=== PATIENT | male | born 1985 | race Caucasian/White ===

== ENCOUNTER 2021-04-24 12:45 | Emergency (ER) | payer OTHER, SELFPAY ==
[2021-04-24 13:01] VITALS: BP 184/93; PULSE 107; RESP 16; TEMP 36.8; O2SAT 99
[2021-04-24 13:07] VITALS: BP 144/104; PULSE 90; RESP 18; O2SAT 97
--- NOTE | 2021-04-24 13:34 | XR_ITS ---
WS: [id number] XR lumbar spine 2-3V* [id number] REASON FOR EXAM: back pain FINDINGS: The lumbar spine is unchanged compared to 01/04/2019. No significant compression deformity or other focal lumbar vertebral body abnormality. Mild narrowing of the intervertebral disc spaces L1-L5. Moderate narrowing of the L5-S1 disc space. XR/XR lumbar spine 2-3V* [id number] IMPRESSION: Mild/moderate changes of degenerative spondylosis with no significant interval change. No acute abnormality.
--- NOTE | 2021-04-24 13:35 | ED_ITS ---
HPI - Back Pain/Injury General: Chief Complaint: Back Pain/Injury Stated Complaint: BACK PAIN AND CANT FEEL HIS KNEES Time Seen by Provider: 04/24/21 13:09 History of Present Illness: HPI Narrative: 35-year-old male presents emergency room complaining of low back pain radiating into the buttock and the upper thighs bilaterally. This been present for several months he has not seen anyone for it he has been taking acetaminophen and ibuprofen for it at home. He has been taking far more than the usual recommended doses from what he described he is probably getting 6 to 8 g of Tylenol per day. He says he has been doing this for several weeks. He is also taking large amounts of ibuprofen is not had any GI side effects. Noted so far. He states he did not have any trauma that precipitated this he is intermittently had significant back pain in the past no previous surgeries or imaging. No difficulty with bowel or bladder no urinary retention or fecal incontinence he said the worst of the pain is when he stands up and better if he sits or if he lies down. MD elicited complaint: back pain and back injury Pertinent past history: prior back pain Onset (ago): month(s) Timing: intermittent Severity: severe Similar Symptoms Previously: Yes Quality: sharp Location: lumbar spine Radiation: buttocks, left upper leg and right upper leg Exacerbating factors: walking Relieving factors: supine and sitting upright Associated symptoms: Deny abdominal pain, arthralgias, chills, change in bowel habits, difficulty walking, dysuria, fatigue, fecal incontinence, fever(s), hematuria, myalgias, nausea, numbness, syncope, tingling/numbness/burning, urinary frequency, urinary urgency, vomiting or weakness Treatments prior to arrival: NSAIDS and acetaminophen Work related injury: No Review of Systems 2 Const: Denies: fever(s), chills or fatigue ENMT: Denies: throat pain, ear or mastoid pain, nasal discharge or nasal congestion Card: Denies: syncope Resp: Denies: dyspnea, productive cough or non-productive cough GI: Denies: abdominal pain, nausea, vomiting, fecal incontinence or change in bowel habits : Denies: dysuria, urinary urgency or hematuria Skin/Breast: Denies: rash or pruritus Neuro: Denies: difficulty walking Physical Exam Const: COMMON NORMALS: no acute distress GENERAL APPEARANCE: cooperative and comfortable ORIENTATION/CONSCIOUSNESS: Yes awake, Yes oriented to person, Yes oriented to place and Yes oriented to time HENMT: COMMON NORMALS: normocephalic, atraumatic and hearing grossly normal bilaterally HEAD & SCALP: normocephalic and atraumatic Neck/C-Spine: COMMON NORMALS: no JVD Resp: COMMON NORMALS: normal respiratory effort, No retractions, No use of accessory muscles and clear to auscultation bilaterally AUSCULTATION: clear to auscultation bilaterally Cardio: COMMON NORMALS: no JVD, regular rate, regular rhythm and No murmurs present (Cardio) RATE: regular rate RHYTHM: regular rhythm GI: COMMON NORMALS: Soft to palpation and No hepatosplenomegaly present AUSCULTATION: Yes normoactive bowel sounds PALPATION: Yes Soft to palpation, No Tenderness to palpation present (GI), No Guarding due to palpation present (GI) and Yes No hepatosplenomegaly present Extremity: COMMON NORMALS: normal to inspection, capillary refill normal, no clubbing, cyanosis or edema, no calf tenderness and no pedal edema Neuro: SENSORIUM/ORIENTATION: Yes oriented to person, Yes oriented to place and Yes oriented to time OTHER: Dorsal and plantar flexion strength 5/5. Sensation lower extremities normal straight leg raising negative Skin: COMMON NORMALS: no rashes or lesions noted GENERAL SKIN EXAM: no rashes or lesions noted Course Vital Signs: Vital signs: Vital Signs Temperature 98.2 F 04/24/21 13:01 Pulse Rate 75 04/24/21 15:06 Respiratory Rate 17 04/24/21 14:35 Blood Pressure 141/94 04/24/21 15:06 Pulse Oximetry 97 04/24/21 15:06 MDM - Back Pain/Injury MDM Narrative: Medical decision making narrative: No sign of significant neural impingement at this time. Straight leg raising negative no suggestion of cauda equina at this point. Patient is actually able to move on the exam bed pretty freely without evidence of significant back pain. Neurologically otherwise intact will discharge home on prednisone diclofenac and tizanidine patient has actually had this for quite some time recommend follow-up with primary care as any worsening symptoms can return reevaluate with PCP for potential need for advanced imaging. Lab Data: Labs: Lab Results 04/24/21 04/24/21 04/24/21 13:58 13:58 13:58 WBC 11.0 10^3/uL H 10 ^3/uL (4.0-10.0) RBC 5.10 10^6/uL 10^6 /uL (4.1-5.3) Hgb 16.3 g/dL g/dL (11.7-16.6) Hct 47.7 % % (42.0-52.0) MCV 93.5 fl fl (80-94) MCH 32.0 pg pg (28.0-34.0) MCHC 34.2 g/dL g/dL (30.0-36.0) RDW 13.0 % % (12.1-15.1) Plt Count 283 10^3/cmm 10^3 /cmm (130-400) MPV 9.5 fL fL (7.4-10.4) Neut % (Auto) 70.3 % % Lymph % (Auto) 20.5 % % [place] % (Auto) 5.8 % % Eos % (Auto) 2.8 % % Baso % (Auto) 0.4 % % Neut # (Auto) 7.73 10^3/uL H 10 ^3/uL (1.8-7.7) Lymph # (Auto) 2.3 10^3/uL 10^3/ uL (0.8-4.8) [place] # (Auto) 0.6 10^3/uL 10^3/ uL (0.2-0.9) Eos # (Auto) 0.3 10^3/uL 10^3/ uL (0.0-0.8) Baso # (Auto) 0.0 10^3/uL 10^3/ uL (0.0-0.1) Nucleated RBC % (a uto) 0 % % Nucleated RBCs # 0.0 /100WBC /100W BC PT 12.00 SECONDS L S ECONDS (12.1-14.9) INR 0.86 (0.8-1.2) Sodium 137 mmol/L mmol/L (136-145) Potassium 3.9 mmol/L mmol/L (3.5-5.1) Chloride 103 mmol/L mmol/L (98-107) Carbon Dioxide 25 mmol/L mmol/L (22-29) Anion Gap 12.9 (5-19) BUN 14 mg/dL mg/dL (6-20) Creatinine 0.8 mg/dL mg/dL (0.7-1.2) GFR Calculation 110.0 mL/min mL/m in (90-130) Glucose 106 mg/dL mg/dL (65-115) Calculated Osmolal ity 285 mOsm/kg mOsm/ kg (285-295) Calcium 9.6 mg/dL mg/dL (8.5-10.5) Total Bilirubin 0.2 mg/dL mg/dL (0.15-1.2) AST 37 U/L U/L (0-40) ALT 100 U/L H U/L (0-41) Alkaline Phosphata se 88 IU/L IU/L (40-130) Total Protein 7.7 g/dL g/dL (6.6-8.7) Albumin 4.2 g/dL g/dL (3.5-5.2) Globulin 3.5 g/dL g/dL (1.3-4.6) Acetaminophen 5.7 ug/mL L ug/mL (10-30) Discharge Plan Discharge Patient Disposition: Home Clinical Impression: Lumbar radiculopathy Condition: Stable Prescriptions: New diclofenac sodium 75 mg tablet,delayed release (DR/EC) 75 mg PO Q12H PRN (Reason: pain) Qty: 20 RF: 0 prednisone 20 mg tablet 20 mg PO BID Qty: 15 RF: 0 tizanidine 4 mg capsule 4 mg PO Q6H PRN (Reason: muscle spasticity) Qty: 20 RF: 0 No Action Tylenol 325 mg Tablet 1,300 mg PO .EVERY 2-3 HOURS PRN (Reason: Pain) RF: 0 ibuprofen 200 mg Tablet 800 mg PO .EVERY 2-3 HOURS PRN (Reason: Pain) RF: 0 Discharge Orders: Discharge ED (Routine); Ordered 04/24/21 Ordered By: Lyle Dominguez Discharge Diet: Usual diet Discharge Activity: Limit activity as instructed Patient Instructions: Opioid Safety Activity Restrictions/Additional Instructions: Follow-up with your primary care doctor for evaluation for advanced imaging if not improving. Coding Level of Care Code ED Health Promotion Coordinator for [place] Fwd Exam Comprehensive
[2021-04-24] MEDS: ketorolac 30 mg/mL INJ IVP (14:07)
[2021-04-24] MEDS: dexamethasone 10 mg/mL INJ IVP (14:07)
[2021-04-24] MEDS: orphenadrine 30 mg/mL Inj 2 mL 60 MG IVP (14:08)
[2021-04-24 14:15] LABS: Basophils % 0.4 %; Eosinophils # 0.3 10^3/uL (0.0-0.8); Eosinophils % 2.8 %; Hematocrit 47.7 % (42.0-52.0); Hemoglobin 16.3 g/dL (11.7-16.6); Lymphocytes # 2.3 10^3/uL (0.8-4.8); Lymphocytes % 20.5 %; Mean Corpuscular HGB Conc 34.2 g/dL (30.0-36.0); Mean Corpuscular Volume 93.5 fl (80-94); Mean Platelet Volume 9.5 fL (7.4-10.4); Monocytes # 0.6 10^3/uL (0.2-0.9); Monocytes % 5.8 %; Neutrophils # 7.73 10^3/uL (1.8-7.7); Neutrophils % 70.3 %; Nucleated Red Blood Cells % 0 %; Platelet Count 283 10^3/cmm (130-400)
[2021-04-24 14:30] LABS: INR 0.86 (0.8-1.2)
[2021-04-24 14:35] VITALS: BP 153/100; PULSE 81; RESP 17; O2SAT 96
[2021-04-24 14:40] LABS: Acetaminophen 5.7 ug/mL (10-30); Alanine Aminotransferase 100 U/L (0-41); Albumin Level 4.2 g/dL (3.5-5.2); Alkaline Phosphatase 88 IU/L (40-130); Anion Gap 12.9 (5-19); Aspartate Amino Transferase 37 U/L (0-40); Blood Urea Nitrogen 14 mg/dL (6-20); Calcium 9.6 mg/dL (8.5-10.5); Carbon Dioxide 25 mmol/L (22-29); Chloride 103 mmol/L (98-107); Globulin 3.5 g/dL (1.3-4.6); Glucose 106 mg/dL (65-115); Osmolality Calculated 285 mOsm/kg (285-295); Potassium 3.9 mmol/L (3.5-5.1); Sodium 137 mmol/L (136-145); Total Bilirubin 0.2 mg/dL (0.15-1.2); Total Protein 7.7 g/dL (6.6-8.7)
[2021-04-24 15:06] VITALS: BP 141/94; PULSE 75; O2SAT 97
== END 2021-04-24 15:06 | disposition home or self-care (01) ==
PROVIDERS: Emergency Provider Family Medicine
DX: M54.16 Radiculopathy, lumbar region (principal)
CPT/HCPCS: 72100; 80053; 80307; 85025; 85610; 96374; 96375; 99284; J1100; J1885; J2360

== ENCOUNTER 2022-07-04 17:01 | Emergency (ER) | payer OTHER, SELFPAY ==
[2022-07-04 17:07] VITALS: BP 156/95; PULSE 103; RESP 16; TEMP 36.4; O2SAT 99; BMI 37.0
--- NOTE | 2022-07-04 17:20 | W.ED.MALEGU ---
Documented by User: Lyle Dominguez DO 07/06/22 06:19 HPI - Male Genitourinary General: Chief complaint: Urogenital-Male Stated complaint: blood in urine Time Seen by Provider: 07/04/22 17:19 Source: patient Mode of arrival: ambulatory History of Present Illness: 36-year-old male presents emergency room complaining of hematuria. Has some dysuria. This began just prior to arrival. Not previously had a history of renal stones or cystitis. He is not had any penile drainage. He has chronic back pain but no new flank pain. Denies fever sweats or chills. Onset (ago): minute(s) Duration: constant Severity: mild Quality: burning Relieving factors: none Exacerbating factors: none Associated symptoms: Reports dysuria and hematuria; Deny discharge, fevers/chills, nausea, rash, swelling, urinary incontinence, urinary retention, mass or vomiting Review of Systems Const: Denies: fever(s), chills, body aches, change in appetite, fatigue or malaise ENMT: Denies: throat pain, ear or mastoid pain, nasal discharge or nasal congestion Card: Denies: chest pain, palpitations, irregular heart rhythm, edema, dyspnea on exertion or orthopnea Resp: Denies: dyspnea, productive cough or non-productive cough GI: Denies: abdominal pain, nausea, vomiting, diarrhea or constipation : Reports: dysuria and hematuria; Denies: flank pain, urinary frequency, urinary urgency or urinary incontinence Musc: Denies: neck pain or back pain Skin/Breast: Denies: rash or pruritus [facility] ED PFSH: Medical History (Updated 07/04/22 @ 19:00 by Weston Orozco DO) Diabetes mellitus Obesity Social History (Updated 07/04/22 @ 17:28 by Lyle Dominguez DO) Smoking and tobacco status: never smoked Physical Exam Const: COMMON NORMALS: no acute distress GENERAL APPEARANCE: cooperative and comfortable ORIENTATION/CONSCIOUSNESS: Yes awake, Yes oriented to person, Yes oriented to place and Yes oriented to time HENMT: COMMON NORMALS: normocephalic, atraumatic and hearing grossly normal bilaterally HEAD & SCALP: normocephalic and atraumatic Resp: COMMON NORMALS: normal respiratory effort, No retractions, No use of accessory muscles and clear to auscultation bilaterally AUSCULTATION: clear to auscultation bilaterally Cardio: COMMON NORMALS: regular rate, regular rhythm and No murmurs present (Cardio) RATE: regular rate RHYTHM: regular rhythm GI: COMMON NORMALS: Soft to palpation and No hepatosplenomegaly present AUSCULTATION: Yes normoactive bowel sounds PALPATION: Yes Soft to palpation, No Tenderness to palpation present (GI), No Guarding due to palpation present (GI) and Yes No hepatosplenomegaly present : COMMON NORMALS: Yes no CVA tenderness BLADDER/KIDNEY EXAM: Yes no CVA tenderness Back/Pelvis: COMMON NORMALS: no CVA tenderness Extremity: COMMON NORMALS: normal to inspection, capillary refill normal, no clubbing, cyanosis or edema, no calf tenderness and no pedal edema Neuro: SENSORIUM/ORIENTATION: Yes oriented to person, Yes oriented to place and Yes oriented to time Skin: COMMON NORMALS: no rashes or lesions noted GENERAL SKIN EXAM: no rashes or lesions noted Course Vital Signs: Vital signs: Vital Signs Temperature 97.6 F 07/04/22 17:07 Pulse Rate 103 H 07/04/22 17:07 Respiratory Rate 16 07/04/22 17:07 Blood Pressure 156/95 07/04/22 17:07 Pulse Oximetry 99 07/04/22 17:[address] thod 07/04/22 17:07 [facility] - Male Medical Decision Making Care signed out to Dr. Orozco at change of shift. See final notes for diagnosis and disposition. 36-year-old male gross hematuria checked out to me at shift change by Dr. Rosa. This gentleman is in no pain currently. He does have hematuria on urinalysis. His renal function looks normal. His white blood cell count is 12.5. Hemoglobin is 16.5. His CT does not reveal a definite cause of gross hematuria. He was informed of this. This could have been a stone that passed earlier today causing hematuria but no cause is identified by CT. He was told he needs to follow-up next week to ensure his urine is clearing the blood. We will ask case management to make an appointment for him, as he does not have a PCP. Lab Data 07/04/22 17:30 12 17:30 Radiology Impressions Abdomen/Pelvis CT 07/04/22 17:42 IMPRESSION: 1. 2 mm nonobstructing right renal calculi demonstrated on coronal reformatted images. No left renal calculi identified. No renal cyst or mass noted. No hydronephrosis. Normal ureters. No obstructive uropathy. Tiny right renal calculi appear new when compared to CT abdomen of 01/04/2019. 2. The urinary bladder is unremarkable in appearance. 3. 1.8 cm right adrenal adenoma. This lesion has enlarged slightly when compared to 01/04/2019. 4. Mild diverticulosis of the sigmoid colon. No acute diverticulitis. COMMENTS: Consistent with the [employer]'s Incidental Findings Committee white paper (J Am Gwendolyn Radiol 2017): For any incidental adrenal lesion greater than or equal to 1 cm but less than or equal to 4 cm classified in this report as benign, likely benign, or containing fat (including classification as an adenoma or myelolipoma), no follow-up imaging is recommended per consensus recommendations based on imaging criteria. Further lab evaluation could be pursued if warranted based on clinical findings. Laboratory Results WBC 12.5 10^3/uL (4.0-10.0) H 07/04/22 17:30 RBC 5.22 10^6/uL (4.1-5.3) 07/04/22 17:30 Hgb 16.5 g/dL (11.7-16.6) 07/04/22 17:30 Hct 48.0 % (42.0-52.0) 07/04/22 17:30 MCV 92.0 fl (80-94) 07/04/22 17:30 MCH 31.6 pg (28.0-34.0) 07/04/22 17:30 MCHC 34.4 g/dL (30.0-36.0) 07/04/22 17:30 RDW 12.9 % (12.1-15.1) 07/04/22 17:30 Plt Count 282 10^3/cmm (130-400) 07/04/22 17:30 MPV 9.6 fL (7.4-10.4) 07/04/22 17:30 Neut % (Auto) 65.2 % 07/04/22 17:30 Lymph % (Auto) 22.6 % 07/04/22 17:30 [place] % (Auto) 8.0 % 07/04/22 17:30 Eos % (Auto) 3.3 % 07/04/22 17:30 Baso % (Auto) 0.6 % 07/04/22 17:30 Neut # (Auto) 8.12 10^3/uL (1.8-7.7) H 07/04/22 17:30 Lymph # (Auto) 2.8 10^3/uL (0.8-4.8) 07/04/22 17:30 [place] # (Auto) 1.0 10^3/uL (0.2-0.9) H 07/04/22 17:30 Eos # (Auto) 0.4 10^3/uL (0.0-0.8) 07/04/22 17: Baso # (Auto) 0.1 10^3/uL (0.0-0.1) 07/04/22 17:30 Nucleated RBC % (auto) 0 % 07/04/22 17: Nucleated RBCs # 0.0 /100WBC 07/04/22 17:30 Sodium 134 mmol/L (136-145) L 07/04/22 17:30 Potassium 3.7 mmol/L (3.5-5.1) 07/04/22 17:30 Chloride 98 mmol/L (98-107) 07/04/22 17:30 Carbon Dioxide 27 mmol/L (22-29) 07/04/22 17:30 Anion Gap 12.7 (5-19) 07/04/22 17:30 BUN 9 mg/dL (6-20) 07/04/22 17:30 Creatinine 0.7 mg/dL (0.7-1.2) 07/04/22 17:30 GFR Calculation 127.6 mL/min (90-130) 07/04/22 17:30 Glucose 117 mg/dL (65-115) H 07/04/22 17:30 Calculated Osmolality 278 mOsm/kg (285-295) L 07/04/22 17:30 Calcium 9.5 mg/dL (8.5-10.5) 07/04/22 17:30 Urine Color Yellow (Yellow) 07/04/22 17:15 Urine Appearance Hazy (CLEAR) A 07/04/22 17: Urine pH 5 (5-7) 07/04/22 17: Ur Specific [place] 1.020 (1.005-1.030) 07/04/22 17:15 Urine Protein Neg (Negative) 07/04/22 17:15 Urine Glucose (UA) Norm (Normal) 07/04/22 17:15 Urine Ketones Negative (Negative) 07/04/22 17:15 Urine Blood 3+ (Negative) H 07/04/22 17:15 Urine Nitrate Negative (Negative) 07/04/22 17:15 Urine Bilirubin Neg (Negative) 07/04/22 17:15 Urine Urobilinogen 1 mg/dL (Negative) H 07/04/22 17:15 Ur Leukocyte Esterase Negative (Negative) 07/04/22 17:15 Urine RBC 40-50 /hpf (0-2) H 07/04/22 17:15 Urine WBC 5-10 /hpf (0-5) H 07/04/22 17:15 Ur Squamous Epith Cells None /hpf (0-5) 07/04/22 17:15 Amorphous Sediment Not Reportable 07/04/22 17:15 Urine Bacteria Trace /hpf (NONE) 07/04/22 17:15 Urine Mucus 1+ /hpf 07/04/22 17:15 Discharge Plan Discharge Patient Disposition: Home Clinical Impression: Gross hematuria Condition: Stable Prescriptions: No Action Tylenol 325 mg Tablet 1,300 mg PO .EVERY 2-3 HOURS PRN (Reason: Pain) ibuprofen 200 mg Tablet 800 mg PO .EVERY 2-3 HOURS PRN (Reason: Pain) diclofenac sodium 75 mg tablet,delayed release (DR/EC) 75 mg PO Q12H PRN (Reason: pain) Qty: 20 0RF prednisone 20 mg tablet 20 mg PO BID Qty: 15 0RF Rx Instructions: 1 p.o. 3 times daily x3 days, 1 p.o. twice daily x2 days, 1 p.o. daily x2 days tizanidine 4 mg capsule 4 mg PO Q6H PRN (Reason: muscle spasticity) Qty: 20 0RF Rx Instructions: do not exceed 3 doses per 24 hrs Discharge Orders: Discharge ED (Routine); Ordered 07/04/22 Ordered By: Weston Orozco Patient Instructions: Hematuria (ED) Activity Restrictions/Additional Instructions: Return for increasing pain, fever, worsening bleeding in the urine or bleeding from other places. We have asked case management to make you an appointment for follow-up next week to ensure your urine is clearing up. It is important to ensure that the urine clears of blood, even microscopically. Coding Level of Care Code ED Interactive Producer for Chg Fwd Exam Comprehensive Documented by User: Weston Orozco DO 07/04/22 19:06 HPI - Male Genitourinary General: Chief complaint: Urogenital-Male Stated complaint: blood in urine Time Seen by Provider: 07/04/22 17:19 [facility] ED PFSH: Medical History (Updated 07/04/22 @ 19:00 by Weston Orozco DO) Diabetes mellitus Obesity Social History (Updated 07/04/22 @ 17:28 by Lyle Dominguez DO) Smoking and tobacco status: never smoked Course Vital Signs: Vital signs: Vital Signs Temperature 97.6 F 07/04/22 17:07 Pulse Rate 103 H 07/04/22 17:07 Respiratory Rate 16 07/04/22 17:07 Blood Pressure 156/95 07/04/22 17:07 Pulse Oximetry 99 07/04/22 17:07 Oxygen Delivery Me thod 07/04/22 17:07 MDM - Male Medical Decision Making 36-year-old male gross hematuria checked out to me at shift change by Dr. Rosa. This gentleman is in no pain currently. He does have hematuria on urinalysis. His renal function looks normal. His white blood cell count is 12.5. Hemoglobin is 16.5. His CT does not reveal a definite cause of gross hematuria. He was informed of this. This could have been a stone that passed earlier today causing hematuria but no cause is identified by CT. He was told he needs to follow-up next week to ensure his urine is clearing the blood. We will ask case management to make an appointment for him, as he does not have a PCP. Lab Data 07/04/22 17:30 12 17:30 Radiology Impressions Abdomen/Pelvis CT 07/04/22 17:42 IMPRESSION: 1. 2 mm nonobstructing right renal calculi demonstrated on coronal reformatted images. No left renal calculi identified. No renal cyst or mass noted. No hydronephrosis. Normal ureters. No obstructive uropathy. Tiny right renal calculi appear new when compared to CT abdomen of 01/04/2019. 2. The urinary bladder is unremarkable in appearance. 3. 1.8 cm right adrenal adenoma. This lesion has enlarged slightly when compared to 01/04/2019. 4. Mild diverticulosis of the sigmoid colon. No acute diverticulitis. COMMENTS: Consistent with the [employer]'s Incidental Findings Committee white paper (J Am Gwendolyn Radiol 2017): For any incidental adrenal lesion greater than or equal to 1 cm but less than or equal to 4 cm classified in this report as benign, likely benign, or containing fat (including classification as an adenoma or myelolipoma), no follow-up imaging is recommended per consensus recommendations based on imaging criteria. Further lab evaluation could be pursued if warranted based on clinical findings. Laboratory Results WBC 12.5 10^3/uL (4.0-10.0) H 07/04/22 17:30 RBC 5.22 10^6/uL (4.1-5.3) 07/04/22 17:30 Hgb 16.5 g/dL (11.7-16.6) 07/04/22 17:30 Hct 48.0 % (42.0-52.0) 07/04/22 17:30 MCV 92.0 fl (80-94) 07/04/22 17:30 MCH 31.6 pg (28.0-34.0) 07/04/22 17:30 MCHC 34.4 g/dL (30.0-36.0) 07/04/22 17:30 RDW 12.9 % (12.1-15.1) 07/04/22 17:30 Plt Count 282 10^3/cmm (130-400) 07/04/22 17:30 MPV 9.6 fL (7.4-10.4) 07/04/22 17:30 Neut % (Auto) 65.2 % 07/04/22 17:30 Lymph % (Auto) 22.6 % 07/04/22 17:30 [place] % (Auto) 8.0 % 07/04/22 17:30 Eos % (Auto) 3.3 % 07/04/22 17:30 Baso % (Auto) 0.6 % 07/04/22 17:30 Neut # (Auto) 8.12 10^3/uL (1.8-7.7) H 07/04/22 17:30 Lymph # (Auto) 2.8 10^3/uL (0.8-4.8) 07/04/22 17:30 [place] # (Auto) 1.0 10^3/uL (0.2-0.9) H 07/04/22 17:30 Eos # (Auto) 0.4 10^3/uL (0.0-0.8) 07/04/22 17:30 Baso # (Auto) 0.1 10^3/uL (0.0-0.1) 07/04/22 17:30 Nucleated RBC % (auto) 0 % 07/04/22 17: Nucleated RBCs # 0.0 /100WBC 07/04/22 17:30 Sodium 134 mmol/L (136-145) L 07/04/22 17:30 Potassium 3.7 mmol/L (3.5-5.1) 07/04/22 17:30 Chloride 98 mmol/L (98-107) 07/04/22 17:30 Carbon Dioxide 27 mmol/L (22-29) 07/04/22 17:30 Anion Gap 12.7 (5-19) 07/04/22 17:30 BUN 9 mg/dL (6-20) 07/04/22 17:30 Creatinine 0.7 mg/dL (0.7-1.2) 07/04/22 17:30 GFR Calculation 127.6 mL/min (90-130) 07/04/22 17:30 Glucose 117 mg/dL (65-115) H 07/04/22 17:30 Calculated Osmolality 278 mOsm/kg (285-295) L 07/04/22 17:30 Calcium 9.5 mg/dL (8.5-10.5) 07/04/22 17:30 Urine Color Yellow (Yellow) 07/04/22 17:15 Urine Appearance Hazy (CLEAR) A 07/04/22 17:15 Urine pH 5 (5-7) 07/04/22 17:15 Ur Specific [place] 1.020 (1.005-1.030) 07/04/22 17:15 Urine Protein Neg (Negative) 07/04/22 17:15 Urine Glucose (UA) Norm (Normal) 07/04/22 17:15 Urine Ketones Negative (Negative) 07/04/22 17:15 Urine Blood 3+ (Negative) H 07/04/22 17:15 Urine Nitrate Negative (Negative) 07/04/22 17:15 Urine Bilirubin Neg (Negative) 07/04/22 17:15 Urine Urobilinogen 1 mg/dL (Negative) H 07/04/22 17:15 Ur Leukocyte Esterase Negative (Negative) 07/04/22 17:15 Urine RBC 40-50 /hpf (0-2) H 07/04/22 17:15 Urine WBC 5-10 /hpf (0-5) H 07/04/22 17:15 Ur Squamous Epith Cells None /hpf (0-5) 07/04/22 17:15 Amorphous Sediment Not Reportable 07/04/22 17:15 Urine Bacteria Trace /hpf (NONE) 07/04/22 17:15 Urine Mucus 1+ /hpf 07/04/22 17:15 Discharge Plan Discharge Patient Disposition: Home Clinical Impression: Gross hematuria Condition: Stable Prescriptions: No Action Tylenol 325 mg Tablet 1,300 mg PO .EVERY 2-3 HOURS PRN (Reason: Pain) ibuprofen 200 mg Tablet 800 mg PO .EVERY 2-3 HOURS PRN (Reason: Pain) diclofenac sodium 75 mg tablet,delayed release (DR/EC) 75 mg PO Q12H PRN (Reason: pain) Qty: 20 0RF prednisone 20 mg tablet 20 mg PO BID Qty: 15 0RF Rx Instructions: 1 p.o. 3 times daily x3 days, 1 p.o. twice daily x2 days, 1 p.o. daily x2 days tizanidine 4 mg capsule 4 mg PO Q6H PRN (Reason: muscle spasticity) Qty: 20 0RF Rx Instructions: do not exceed 3 doses per 24 hrs Discharge Orders: Discharge ED (Routine); Ordered 07/04/22 Ordered By: Weston Orozco Patient Instructions: Hematuria (ED) Activity Restrictions/Additional Instructions: Return for increasing pain, fever, worsening bleeding in the urine or bleeding from other places. We have asked case management to make you an appointment for follow-up next week to ensure your urine is clearing up. It is important to ensure that the urine clears of blood, even microscopically. Coding Level of Care Code ED Interactive Producer for Chg Fwd Exam Comprehensive
[2022-07-04 17:32] LABS: Protein Urine Neg (Negative); Urine Appearance Hazy (CLEAR); Urine Color Yellow (Yellow); pH Urine 5 (5-7)
[2022-07-04 17:33] LABS: Add Urine Culture? Yes; Add Urine Microscopic? YES; Bacteria Urine TRACE /hpf; Bilirubin Urine Neg (Negative); Blood Urine 3+ (Negative); Glucose Urine UA Norm (Normal); Ketones Urine Negative (Negative); Leukocyte Esterase Urine Negative (Negative); Mucus Urine 1+ /hpf; Nitrate Urine Negative (Negative); RBC Urine 40-50 /hpf (0-2); Urobilinogen Urine 1 mg/dL (Negative)
[2022-07-04 17:35] LABS: Basophils # 0.1 10^3/uL (0.0-0.1); Basophils % 0.6 %; Eosinophils # 0.4 10^3/uL (0.0-0.8); Eosinophils % 3.3 %; Hemoglobin 16.5 g/dL (11.7-16.6); Lymphocytes # 2.8 10^3/uL (0.8-4.8); Lymphocytes % 22.6 %; Mean Corpuscular HGB Conc 34.4 g/dL (30.0-36.0); Mean Corpuscular Hemoglobin 31.6 pg (28.0-34.0); Mean Platelet Volume 9.6 fL (7.4-10.4); Neutrophils # 8.12 10^3/uL (1.8-7.7); Neutrophils % 65.2 %; Nucleated Red Blood Cells % 0 %; Platelet Count 282 10^3/cmm (130-400); Red Blood Count 5.22 10^6/uL (4.1-5.3); Red Cell Distribution Width 12.9 % (12.1-15.1); White Blood Count 12.5 10^3/uL (4.0-10.0)
--- NOTE | 2022-07-04 17:42 | CTR_ITS ---
PROCEDURE INFORMATION: Exam: CT Abdomen And Pelvis Without Contrast Exam date and time: 07/04/2022 5:49 PM Age: 36 years old Clinical indication: Other: Hematuria TECHNIQUE: Imaging protocol: Computed tomography of the abdomen and pelvis without contrast. Radiation optimization: All CT scans at this facility use at least one of these dose optimization techniques: automated exposure control; mA and/or kV adjustment per patient size (includes targeted exams where dose is matched to clinical indication); or iterative reconstruction. COMPARISON: CT kidney stone [id number] 01/04/2019 3:05 PM RADIATION DOSE METRICS: Total DLP (mGy-cm): 1253.97 FINDINGS: Lungs: The lung bases appear unremarkable. Liver: The liver is unremarkable in appearance. Gallbladder and bile ducts: No calcified gallstones in the gallbladder. No gallbladder wall thickening. No pericholecystic fluid. No biliary dilatation. Pancreas: The pancreas is normal in appearance. No pancreatic duct dilatation. Spleen: The spleen is normal in size and appearance. Adrenal glands: 1.8 cm right adrenal adenoma. Left adrenal gland is unremarkable. Kidneys and ureters: 2 mm nonobstructing right renal calculi demonstrated on coronal reformatted images. No left renal calculi identified. No renal cyst or mass noted. No hydronephrosis. Normal ureters. No obstructive uropathy. Stomach and bowel: No acute gastric abnormality demonstrated. The small bowel is unremarkable as demonstrated. Mild diverticulosis of the sigmoid colon. No acute diverticulitis. Appendix: The appendix is normal in appearance. No evidence of appendicitis. Intraperitoneal space: No pneumoperitoneum. No significant fluid collection. Vasculature: No abdominal aortic aneurysm. Lymph nodes: No pathologically enlarged lymph nodes. Urinary bladder: The urinary bladder is unremarkable in appearance. Reproductive: Unremarkable as visualized. Bones/joints: Mild degenerative spine changes. No acute osseous abnormality. Soft tissues: Unremarkable. CT/CT kidney stone [id number] IMPRESSION: 1. 2 mm nonobstructing right renal calculi demonstrated on coronal reformatted images. No left renal calculi identified. No renal cyst or mass noted. No hydronephrosis. Normal ureters. No obstructive uropathy. Tiny right renal calculi appear new when compared to CT abdomen of 01/04/2019. 2. The urinary bladder is unremarkable in appearance. 3. 1.8 cm right adrenal adenoma. This lesion has enlarged slightly when compared to 01/04/2019. 4. Mild diverticulosis of the sigmoid colon. No acute diverticulitis. COMMENTS: Consistent with the [employer]'s Incidental Findings Committee white paper (J Am Gwendolyn Radiol 2017): For any incidental adrenal lesion greater than or equal to 1 cm but less than or equal to 4 cm classified in this report as benign, likely benign, or containing fat (including classification as an adenoma or myelolipoma), no follow-up imaging is recommended per consensus recommendations based on imaging criteria. Further lab evaluation could be pursued if warranted based on clinical findings.
[2022-07-04 17:52] LABS: Anion Gap 12.7 (5-19); Blood Urea Nitrogen 9 mg/dL (6-20); Calcium 9.5 mg/dL (8.5-10.5); Carbon Dioxide 27 mmol/L (22-29); Chloride 98 mmol/L (98-107); Glomerular Filtration Rate 127.6 mL/min (90-130); Glucose 117 mg/dL (65-115); Osmolality Calculated 278 mOsm/kg (285-295); Potassium 3.7 mmol/L (3.5-5.1); Sodium 134 mmol/L (136-145)
--- NOTE | 2022-07-06 10:20 | DCPLANNER ---
Addendum entered by Damari Benitez 07/24/22 11:31: Patient had a follow up appointment scheduled with [facility] - patient did not attend appointment. Original Note: money manager had message to speak with patient about getting established with a primary care physician. money manager spoke with patient, called [facility], spoke with Esmer, gave clinic patients information. A follow up appointment was scheduled for Friday, July 15, [address] a [address] Mann. money manager informed patient of the scheduled appointment.
== END 2022-07-04 19:25 | disposition home or self-care (01) ==
PROVIDERS: Family Medicine; Emergency Provider Emergency Medicine
DX: R31.0 Gross hematuria (principal); E11.9 Type 2 diabetes mellitus without complications
CPT/HCPCS: 36415; 74176; 80048; 81001; 85025; 87086; 99284